=== PATIENT | female | born 1955 | race African-American/Black ===

== ENCOUNTER → 2020-07-31 | Day surgery (SDC) | payer MEDICARE, OTHER ==
[~2020-07-31] MED LIST: DEXTROSE 5% 250ML 250 ML IV ONE; GLIPIZIDE5 MG PO; LEVOTHYROXINE50 MCG PO; LIDOCAINE HCL 2% LOCAL INJ 5 ML SDV VIAL INJ ONE; LISINOPRIL10 MG PO; MIDAZOLAM HCL 2 MG/2 ML VIAL ONE; OMEPRAZOLE40 MG PO; PROPOFOL IV EMULSION 10 MG/ML 20 ML VIAL ONE; TRULICITY1.5 MG/0.5 INJ
[2020-07-31 11:00] VITALS: BP 127/75
== END | disposition home or self-care (01) ==
LOC: OR 08:08
PROVIDERS: ATTEND Internal Medicine Gastroenterology
DX: Z12.11 Encounter for screening for malignant neoplasm of colon (principal); D12.5 Benign neoplasm of sigmoid colon; K57.30 Diverticulosis of large intestine without perforation or abscess without bleeding; K64.8 Other hemorrhoids; K30 Functional dyspepsia; K21.9 Gastro-esophageal reflux disease without esophagitis; G47.33 Obstructive sleep apnea (adult) (pediatric); E11.9 Type 2 diabetes mellitus without complications; I10 Essential (primary) hypertension; E03.9 Hypothyroidism, unspecified; J30.2 Other seasonal allergic rhinitis; Z88.6 Allergy status to analgesic agent; Z91.018 Allergy to other foods; Z79.84 Long term (current) use of oral hypoglycemic drugs; Z87.01 Personal history of pneumonia (recurrent)
CPT/HCPCS: 36415; 45380; 45384; 82948; 88305; 93005; J2001; J2250; J2704; J7070; U0002; 45378